=== PATIENT | female | born 1975 | race Caucasian/White ===

== ENCOUNTER 2016-10-26 11:03 | Emergency (ER) | payer MEDICAID ==
[~2016-10-26] VITALS: Ht 152.4 cm; Wt 142.9 kg
[~2016-10-26 11:03] MED LIST: GLU500 PO; LOVA40TA75 PO; PREVICID PO; [UNRECOGNIZED DRUG - OTHER] PO; [UNRECOGNIZED DRUG - OTHER] PO
[2016-10-26 11:08] VITALS: BP_SYST 145
[2016-10-26] MEDS ORDERED: BACITRACIN 1 GM OINT TP ONE (13:45)
[2016-10-26] MEDS ORDERED: DIPH-TET-PERTUS Vaccine 0.5 ML VIAL (ADACEL) IM ONE (13:45)
[2016-10-26 14:36] VITALS: BP_SYST 151
== END 2016-10-26 14:36 | disposition home or self-care (01) ==
LOC: SED 11:03
DX: S90.32XA Contusion of left foot, initial encounter (principal); E11.9 Type 2 diabetes mellitus without complications; E78.5 Hyperlipidemia, unspecified; Z88.0 Allergy status to penicillin; Z88.1 Allergy status to other antibiotic agents; Z90.49 Acquired absence of other specified parts of digestive tract; Z98.890 Other specified postprocedural states; W20.8XXA Other cause of strike by thrown, projected or falling object, initial encounter; Y93.89 Activity, other specified; Y92.89 Other specified places as the place of occurrence of the external cause; Y99.8 Other external cause status
CPT/HCPCS: 81025; 90715; 99284

== ENCOUNTER 2019-09-29 20:38 | Emergency (ER) | payer MEDICAID ==
[~2019-09-29] VITALS: Ht 152.4 cm; Wt 163.7 kg
[2019-09-29 20:50] VITALS: BP_SYST 117
[2019-09-29] MEDS ORDERED: HYDROcodone/ACETAMIN 5-325 MG TAB (NORCO/ VICODIN) PO ONE (22:00)
[2019-09-29] MEDS ORDERED: IBUPROFEN 600 MG TABLET PO ONE (22:30)
[2019-09-30 19:20] VITALS: BP_SYST 117
== END 2019-09-29 23:02 | disposition home or self-care (01) ==
LOC: SED 20:38
DX: M25.562 Pain in left knee (principal); W20.0XXA Struck by falling object in cave-in, initial encounter; E11.9 Type 2 diabetes mellitus without complications; E78.5 Hyperlipidemia, unspecified; Z88.1 Allergy status to other antibiotic agents; Z88.0 Allergy status to penicillin; Y93.89 Activity, other specified; Y92.89 Other specified places as the place of occurrence of the external cause; Y99.8 Other external cause status
CPT/HCPCS: 73700-TC; 99284

== ENCOUNTER 2023-07-02 20:59 | Emergency (ER) | payer MEDICAID ==
[~2023-07-02] VITALS: Ht 152.4 cm; Wt 163.3 kg
[2023-07-02 21:00] VITALS: BP_SYST 119; PULSE 107; RESP 20; TEMP 97.7; O2SAT 100
[2023-07-02 21:45] LABS: COVID19 ANTIGEN SOFIA FIA NEGATIVE (NEGATIVE)
[2023-07-02 21:53] LABS: INFLUENZA TYPE A Negative (NEGATIVE); INFLUENZA TYPE B NEGATIVE (NEGATIVE)
[2023-07-02] MEDS ORDERED: DEXAMETHASONE SOD PHOSPHATE 10 MG/ML VIAL PO ONE (22:30)
[2023-07-02] MEDS ORDERED: ZIT250 PO (22:31)
[2023-07-02] MEDS ORDERED: DEXAMETHASONE SOD PHOSPHATE 10 MG/ML VIAL IM ONE (23:00)
[2023-07-02 23:16] VITALS: BP_SYST 119; PULSE 107; RESP 20; TEMP 97.7; O2SAT 100
== END 2023-07-02 23:15 | disposition home or self-care (01) ==
LOC: SED 20:59
DX: J40 Bronchitis, not specified as acute or chronic (principal); R05.9 Cough, unspecified; R09.81 Nasal congestion; R06.02 Shortness of breath; E11.9 Type 2 diabetes mellitus without complications; E78.5 Hyperlipidemia, unspecified; Z88.0 Allergy status to penicillin; Z88.1 Allergy status to other antibiotic agents; Z79.899 Other long term (current) drug therapy; Z20.822 Contact with and (suspected) exposure to COVID-19
CPT/HCPCS: 99284; 71045; 87426; 36415; 87804 ×2; J1100